=== PATIENT | male | born 1980 | race Caucasian/White ===

== ENCOUNTER → 2016-07-27 | Outpatient (CLI) | payer BC, OTHER ==
[~2016-07-27] MED LIST: ISOVUE-M 300 61% 15ML VIAL (Q9967) As Ordered ONE; LIDOCAINE 1% SDV INJ 30 ML VIAL As Ordered ONE; diazePAM 5 MG TAB As Ordered ONE; methylPREDNISolone SUSP 40 MG/ML (DEPO-medrol) VIAL (J1030) As Ordered ONE; oxyCODONE 5MG TAB As Ordered ONE
--- NOTE | 2016-07-27 17:22 | REP ---
Partial lumbar spine series: Single view: History: Lumbar epidural steroid injection for pain. 10 seconds of fluoroscopy time is reported. Findings: A single fluoroscopically obtained intraprocedural spot radiograph of the lumbar spine documents needle position and contrast injection associated with epidural injection procedure. Signed by Jorge Luis Agudelo MD 07/28/2016 08:02 A
--- NOTE | 2016-07-30 01:15 | ECWPNPC ---
PATIENT NAME: JEANINE BAPTISTE : 1980 GENDER: MALE VISIT DATE: 07/27/2016 DISCHARGE DATE: 07/27/16 1621 VISIT LOCKED DATE TIME: PHYSICIAN: TREVOR STONE RESOURCE: TREVOR STONE REASON FOR APPOINTMENT 1. LESB HISTORY OF PRESENT ILLNESS HISTORY OF PRESENT ILLNESS: PAIN THE PATIENT DESCRIBES THE PAIN... FALL RISK SCREENING: SCREENING :NO FALLS IN THE PAST YEAR CURRENT MEDICATIONS TAKING OMEPRAZOLE 20 MG CAPSULE DELAYED RELEASE 1 CAP ORALLY ONCE A DAY, NOTES: 07-27-16629 TAKING CELEBREX 200 MG CAPSULE 1 CAPSULE ORALLY BID, NOTES: 07-27-16629 TAKING FLEXERIL 10 MG TABLET 1 TABLET ORALLY BID, NOTES: 07-27-16629 TAKING OXYCODONE HCL 5 MG TABLET 1 TABLET ORALLY Q8H PRN MDD3, NOTES: NOT PRESCRIBED FOR HIM 07-26-162029 TAKING GABAPENTIN 300 MG CAPSULE 1 CAPSULE ORALLY BID, NOTES: 07-27-16629 NOT-TAKING TRAMADOL HCL 50 MG TABLET SOLUBLE ORALLY , NOTES: TOOK LAST 1 THIS AM,NOT PRECRIBED FOR HIM NOT-TAKING METHYLPREDNISOLONE 4 MG TABLET THERAPY PACK DIRECTED ORALLY DIRECTED, NOTES: COMPLETED 07/11 NOT-TAKING IBUPROFEN 600 MG TABLET 1 TABLET ORALLY ONCE DAILY, NOTES: RAN OUT 07/10 OR MEDICATION LIST REVIEWED AND RECONCILED WITH THE PATIENT PAST MEDICAL HISTORY GERD ALLERGIES N.K.D.A. SURGICAL HISTORY DENIES PAST SURGICAL HISTORY SOCIAL HISTORY GENERAL: TOBACCO USE ARE YOU A:CURRENT SMOKER LEARNING BARRIERS / SPECIAL NEEDS ORIENTED TO PLAN OF CARE: PATIENT, PAIN MANAGEMENT PATIENT, ORIENTED TO PLAN OF CARE: PATIENT, PAIN MANAGEMENT PATIENT. NEW PATIENT PAIN DIARY TODAY'S VISITNOTES FROM 0-10, WHAT LEVEL IS YOUR PAIN TODAY?0 PAIN CLINIC PFS, CLERGY, PUBLIC HEALTH REFERRALS PFS REFERRAL NEEDED?NO CLERGY REFERRAL NEEDED?NO PUBLIC HEALTH REFERRAL NEEDED?NO WAS THE PROVIDER NOTIFIED OF ANY PERTINENT INFO?NO PFS REFERRAL NEEDED?NO CLERGY REFERRAL NEEDED?NO PUBLIC HEALTH REFERRAL NEEDED?NO WAS THE PROVIDER NOTIFIED OF ANY PERTINENT INFO?NO HOSPITALIZATION/MAJOR DIAGNOSTIC PROCEDURE DENIES PAST HOSPITALIZATION REVIEW OF SYSTEMS CONSTITUTIONAL: ANY CHANGE IN YOUR MEDICAL CONDITION? NO . CHILLS NO . FEVER NO . INFECTION: DO YOU HAVE NEW INFECTIONS? NO . DO YOU HAVE HISTORY OF MRSA? NO . MUSCULOSKELETAL: ANY NEW PATTERNS OF PAIN OR NUMBNESS? NO . GASTROENTEROLOGY: ANY NEW CHANGE IN BOWEL CONTROL? NO . GENITOURINARY: ANY NEW CHANGE IN BLADDER CONTROL? NO . IS THERE A CHANCE YOU COULD BE ? NO . HEMATOLOGY/LYMPH: DO YOU TAKE ANY BLOOD THINNERS? (FOR EXAMPLE- COUMADIN, PLAVIX, AGGRENOX, PLATEL, PRADAXA, OR XARELTO) NO . WHEN WAS YOUR LAST DOSE? DATE: TIME: . NEUROLOGY: HAVE YOU FALLEN IN THE PAST 6 MONTHS? NO . ANY NEW EXTREMITY NUMBNESS OR WEAKNESS? NO . CARDIOLOGY: DO YOU HAVE A PACEMAKER OR DEFIBRILLATOR? NO . RESPIRATORY: HAVE YOU BEEN SICK IN THE PAST WEEK? NO . FEVER NO . FLU LIKE SYMPTOMS? NO . COUGH NO . INTEGUMENTARY: DO YOU HAVE ANY RASHES OR OPEN SORES? NO . ALLERGIC/IMMUNO: ARE YOU ALLERGIC TO SHELLFISH OR IV DYE? NO . ANY NEW ALLERGIES? NO . PSYCHIATRIC: DO YOU HAVE THOUGHTS OF HURTING YOURSELF OR SOMEONE ELSE? NO . ARE YOU ABUSED, NEGLECTED, OR IN AN UNSAFE ENVIRONMENT? NO . ENDOCRINOLOGY: ARE YOU DIABETIC? NO . OTHER: DO YOU NEED ANY PRESCRIPTIONS? YES . IF YES, PLEASE LIST: OMEPRAZOLE . ANY NEW PROBLEMS WITH YOUR MEDICATIONS? NO . WHEN DID YOU LAST EAT? 0630 . WHEN DID YOU LAST DRINK? 1030 . WHAT DID YOU LAST DRINK? WATER . NAME OF PERSON DRIVING YOU HOME? TARA FERNÁNDEZ . DO YOU HAVE ANY OTHER QUESTIONS OR CONCERNS NO . REVIEWED BY: PROVIDER: . VITAL SIGNS WT 230 LBS, HT 70 IN, BMI 33.00 INDEX, BP 137/88 MM HG, HR 91 /MIN, RR 16 /MIN, TEMP 98.0 F, OXYGEN SAT % 97, NA INITIALS TL 1359, REVIEWED BY: LS. ASSESSMENTS INTERVERTEBRAL DISC DISORDERS WITH RADICULOPATHY, LUMBOSACRAL REGION - M51.17 (PRIMARY) PROCEDURES PRE PROCEDURE DIAGNOSIS LUMBOSACRAL DISC DISORDER WITH RADICULOPATHY POST PROCEDURE DIAGNOSIS LUMBOSACRAL DISC DISORDER WITH RADICULOPATHY PROCEDURE LUMBAR EPIDURAL STEROID INJECTION UNDER FLUOROSCOPIC GUIDANCE SURGEON DR. TREVOR STONE RETAIL SERVICE LEAD MERCHANDISER NONE ANESTHESIA LOCAL PRE PROCEDURE NOTE THE PATIENT HAS A HISTORY OF CHRONIC LOW BACK PAIN. I EVALUATE THE PATIENT AND REVIEWED THE CHART. I WENT OVER THE RISKS, ALTERNATIVES, AND BENEFITS ASSOCIATED WITH THIS PROCEDURE. THE PATIENT WOULD LIKE TO PROCEED AND GIVE CONSENT TO PERFORMED THE PROCEDURE. THE PATIENT DENIES UNEXPLAINABLE WEIGHT LOSS, FEVER, CHILLS, OR NEW CHANGES IN URINARY OR BOWEL CONTROL DESCRIPTION OF PROCEDURE THE PATIENT WAS BROUGHT TO THE PROCEDURE ROOM AND PLACED IN THE PRONE POSITION. THE LUMBOSACRAL AREA WAS CLEANED WITH BETADINE SOLUTION AND DRAPED ASEPTICALLY. THE PROCEDURE WAS DONE UNDER STERILE CONDITIONS. I CHECKED LATERALITY AND THE LEVEL WHERE THE PROCEDURE WAS GOING TO BE PERFORMED WITH THE PATIENT AND THE SUPPORTING STAFF AT THE MOMENT OF THE TIME OUT IN THE PROCEDURE ROOM. UNDER FLUOROSCOPIC GUIDANCE, THE TARGET POINT WAS SELECTED AT THE INTERLAMINAR LEVEL OF L5-S1. LIDOCAINE WAS USED TO NUMB THE SKIN AND THE SUBCUTANEOUS TISSUE BELOW IT. EPIDURAL TUOHY NEEDLE, 17-GAUGE, WAS ADVANCED UNDER FLUOROSCOPIC GUIDANCE AND FOLLOWING PATIENT FEEDBACK UNTIL THE EPIDURAL SPACE WAS REACHED, 7 CM DEEP INTO THE SKIN BY THE LOSS OF RESISTANCE TECHNIQUE. ISOVUE M DYE 30%, 0.25 ML, WAS INJECTED SHOWING ADEQUATE SPREAD OF THE DYE. THEN, A SOLUTION OF 3 ML OF NORMAL SALINE WITH DEPO-MEDROL 60 MG WAS INJECTED SLOWLY FOLLOWING PATIENT FEEDBACK. THERE WAS NO EVIDENCE OF BLOOD, PARESTHESIA OR CEREBROSPINAL FLUID DURING THE PROCEDURE. THE PATIENT WAS SENT TO THE RECOVERY ROOM. THE PATIENT WAS MOVING THE EXTREMITIES AND DOING WELL. THERE WAS NO COMPLICATION DURING THE PROCEDURE. FLUOROSCOPY TIME WAS 10 SECONDS POST PROCEDURE NOTE THE PATIENT WILL BE SEEN IN A FOLLOW UP IN THE NEXT FEW WEEKS. INSTRUCTIONS WERE GIVEN, QUESTIONS WERE ANSWERED, AND THE PATIENT EXPRESSED UNDERSTANDING AND AGREES WITH THE PLAN. I, GEE HARDY, DOCUMENTED THE ABOVE INFORMATION ACTING A SCRIBE FOR DR. STONE. I HAVE REVIEWED THE ABOVE DOCUMENT, WRITTEN BY GEE NEVAREZIBSilvana AND I VERIFY THAT IT IS ACCURATE DIAGNOSTIC IMAGING [facility] FLUORO GUIDE SPINE INJECTION (PAIN)[id number] PROCEDURE CODES 21313 LUMBAR/SACRAL W/ IMAGING 6045F RADXPS IN END [id number] PXD FOLLOW UP 3 WEEKS ELECTRONICALLY SIGNED BY TREVOR STONE MD ON 07/29/2016 AT 06:20 PM EST DISCLAIMER : THIS IS A VISIT SUMMARY EXTRACTED FROM THE [employer] CHART. IT IS NOT A COPY OF THE [employer] PROGRESS NOTE. MTDD
== END ==
LOC: M PAIN 13:20
PROVIDERS: ATTEND Anesthesiology
DX: G89.29 Other chronic pain (principal); M51.17 Intervertebral disc disorders with radiculopathy, lumbosacral region; M54.5 Low back pain; Z79.891 Long term (current) use of opiate analgesic; Z79.899 Other long term (current) drug therapy
CPT/HCPCS: 62323; J1030; Q9967

== ENCOUNTER → 2016-08-26 | Outpatient (CLI) | payer BC, OTHER ==
--- NOTE | 2016-09-01 00:42 | ECWPNPC ---
PATIENT NAME: JEANINE BAPTISTE : 1980 GENDER: MALE VISIT DATE: 08/26/2016 DISCHARGE DATE: 08/26/16 1639 VISIT LOCKED DATE TIME: PHYSICIAN: TREVOR STONE RESOURCE: TREVOR STONE REASON FOR APPOINTMENT 1. POST PROCEDURE- LBP HISTORY OF PRESENT ILLNESS HISTORY OF PRESENT ILLNESS: PAIN THE PATIENT DESCRIBES THE PAIN... 36 YEAR OLD MALE PATIENT WITH HISTORY OF CHRONIC BACK PAIN. PATIENT DESCRIBES THE PAIN ACHING, BURNING, TENDER, SORE, AND HAVING IT ALL THE TIME WITH A PAIN SCORE OF 3/10 ON TODAY'S VISIT. PATIENT RECEIVED A LUMBAR EPIDURAL ON 07/27/2016 AND REPORTS THAT IT WORKED WELL FOR HIM. SINCE THE INJECTION HE HAS BEEN ABLE TO WALK AROUND A LOT BETTER WITH LESS PAIN. PATIENT REPORTS THAT TODAY HIS PAIN SCORE IS GOOD, AND BEFORE HE SAW THE CHIROPRACTOR ABOUT A WEEKS AGO IT WOULD BE A 1/10 OR 2/10 AND THAT HE WOULD ONLY TAKE ONE GABAPENTIN AND CELEBREX A DAY AND SOMETIMES NONE AT ALL. BUT SINCE THE VISIT WITH THE CHIROPRACTOR HIS PAIN LEVELS HAVE BEEN SLOWLY GOING UP WELL THE PAIN INTENSITY INCREASING. PATIENT DENIES UNEXPLAINABLE WEIGHT LOSS, FEVER, CHILLS, NEW CHANGES ON HIS URINARY OR BOWEL CONTROL. FALL RISK SCREENING: SCREENING :NO FALLS IN THE PAST YEAR CURRENT MEDICATIONS TAKING OMEPRAZOLE 20 MG CAPSULE DELAYED RELEASE 1 CAP ORALLY ONCE A DAY TAKING FLEXERIL 10 MG TABLET 1 TABLET ORALLY BID TAKING CELEBREX 200 MG CAPSULE 1 CAPSULE ORALLY BID TAKING OXYCODONE HCL 5 MG TABLET 1 TABLET ORALLY Q8H PRN MDD3 TAKING GABAPENTIN 300 MG CAPSULE 1 CAPSULE ORALLY BID NOT-TAKING TRAMADOL HCL 50 MG TABLET SOLUBLE ORALLY , NOTES: TOOK LAST 1 THIS AM,NOT PRECRIBED FOR HIM NOT-TAKING METHYLPREDNISOLONE 4 MG TABLET THERAPY PACK DIRECTED ORALLY DIRECTED, NOTES: COMPLETED 07/11 NOT-TAKING IBUPROFEN 600 MG TABLET 1 TABLET ORALLY ONCE DAILY, NOTES: RAN OUT 07/10 OR MEDICATION LIST REVIEWED AND RECONCILED WITH THE PATIENT PAST MEDICAL HISTORY GERD ALLERGIES N.K.D.A. SURGICAL HISTORY NO SURGICAL HISTORY DOCUMENTED. FAMILY HISTORY NO FAMILY HISTORY DOCUMENTED. SOCIAL HISTORY GENERAL: TOBACCO USE ARE YOU A:NONSMOKER LEARNING BARRIERS / SPECIAL NEEDS ORIENTED TO PLAN OF CARE: PATIENT, PAIN MANAGEMENT PATIENT, ORIENTED TO PLAN OF CARE: PATIENT, PAIN MANAGEMENT PATIENT. NEW PATIENT PAIN DIARY TODAY'S VISITNOTES FROM 0-10, WHAT LEVEL IS YOUR PAIN TODAY?0 PAIN CLINIC PFS, CLERGY, PUBLIC HEALTH REFERRALS PFS REFERRAL NEEDED?NO CLERGY REFERRAL NEEDED?NO PUBLIC HEALTH REFERRAL NEEDED?NO WAS THE PROVIDER NOTIFIED OF ANY PERTINENT INFO?NO PFS REFERRAL NEEDED?NO CLERGY REFERRAL NEEDED?NO PUBLIC HEALTH REFERRAL NEEDED?NO WAS THE PROVIDER NOTIFIED OF ANY PERTINENT INFO?NO HOSPITALIZATION/MAJOR DIAGNOSTIC PROCEDURE NO HOSPITALIZATION HISTORY. REVIEW OF SYSTEMS CONSTITUTIONAL: ANY CHANGE IN YOUR MEDICAL CONDITION? NO . CHILLS NO . FEVER NO . INFECTION: DO YOU HAVE NEW INFECTIONS? NO . DO YOU HAVE HISTORY OF MRSA? NO . MUSCULOSKELETAL: ANY NEW PATTERNS OF PAIN OR NUMBNESS? YES PAIN HAS CHANGED SINCE PROCEDURE/CHIROPRACTOR . GASTROENTEROLOGY: ANY NEW CHANGE IN BOWEL CONTROL? NO . GENITOURINARY: ANY NEW CHANGE IN BLADDER CONTROL? NO . IS THERE A CHANCE YOU COULD BE ? NO . HEMATOLOGY/LYMPH: DO YOU TAKE ANY BLOOD THINNERS? (FOR EXAMPLE- COUMADIN, PLAVIX, AGGRENOX, PLATEL, PRADAXA, OR XARELTO) NO . WHEN WAS YOUR LAST DOSE? DATE: TIME: . NEUROLOGY: HAVE YOU FALLEN IN THE PAST 6 MONTHS? NO . ANY NEW EXTREMITY NUMBNESS OR WEAKNESS? NO . CARDIOLOGY: DO YOU HAVE A PACEMAKER OR DEFIBRILLATOR? NO . RESPIRATORY: HAVE YOU BEEN SICK IN THE PAST WEEK? NO . FEVER NO . FLU LIKE SYMPTOMS? NO . COUGH NO . INTEGUMENTARY: DO YOU HAVE ANY RASHES OR OPEN SORES? NO . ALLERGIC/IMMUNO: ARE YOU ALLERGIC TO SHELLFISH OR IV DYE? NO . ANY NEW ALLERGIES? NO . PSYCHIATRIC: DO YOU HAVE THOUGHTS OF HURTING YOURSELF OR SOMEONE ELSE? NO . ARE YOU ABUSED, NEGLECTED, OR IN AN UNSAFE ENVIRONMENT? NO . ENDOCRINOLOGY: ARE YOU DIABETIC? NO . OTHER: DO YOU NEED ANY PRESCRIPTIONS? NO . IF YES, PLEASE LIST: ____ . ANY NEW PROBLEMS WITH YOUR MEDICATIONS? NO . WHEN DID YOU LAST EAT? ____ . WHEN DID YOU LAST DRINK? ____ . WHAT DID YOU LAST DRINK? ____ . NAME OF PERSON DRIVING YOU HOME? ____ . DO YOU HAVE ANY OTHER QUESTIONS OR CONCERNS NO . REVIEWED BY: PROVIDER: TREVOR STONE MD . VITAL SIGNS WT 225 LBS, HT 70 IN, BMI 32.28 INDEX, BP 144/86 MM HG, HR 93 /MIN, RR 16 /MIN, TEMP 97.2 F, OXYGEN SAT % 98, NA INITIALS TL 1529, REVIEWED BY: KG. EXAMINATION : PATIENT IS ALERT O X 3 AND COOPERATIVE. PATIENT AMBULATES WITH AN ANTALGIC GAIT. PATIENT'S RIGHT LEG IS WEAKER AT FLEXION AND EXTENSION. MRI OF THE LUMBAR SPINE DONE ON 04-27-2016 SHOWS A CENTRAL RIGHT PARACENTRAL DISC PROTRUSION AT L5-S1 LEVEL COMPRESSES ON THE TRANSVERSI NG RIGHT S1 NERVE ROOT. ASSESSMENTS INTERVERTEBRAL DISC DISORDERS WITH RADICULOPATHY, LUMBAR REGION - M51.16 (PRIMARY) INTERVERTEBRAL DISC DISORDERS WITH RADICULOPATHY, LUMBOSACRAL REGION - M51.17 TREATMENT INTERVERTEBRAL DISC DISORDERS WITH RADICULOPATHY, LUMBAR REGION NOTES: WE DISCUSSED SEVERAL ISSUES WITH MR. BAPTISTE'S PAIN MANAGEMENT CASE. AT THIS TIME THE PATIENT WILL CONTINUE ON THE SAME MEDICATION REGIMEN BEFORE. SINCE THE PATIENT FELT GOOD PAIN RELIEF WITH THE LUMBAR EPIDURAL INJECTION, HE IS A GOOD CANDIDATE FOR ANOTHER LUMBER EPIDURAL INJECTION. WE DISCUSSED THE RISK, ALTERNATIVES, AND BENEFITS AND THE PATIENT WOULD LIKE TO PROCEED. PATIENT WILL BE BOOKED PENDING APPROVAL. , INSTRUCTIONS WERE GIVEN, QUESTIONS WERE ANSWERED, PATIENT REPORTS UNDERSTANDING AND AGREES WITH THE PLAN. I, HAZEL BOYKIN, DOCUMENTED THE ABOVE INFORMATION ACTING A SCRIBE FOR DR. STONE. I HAVE REVIEWED THE ABOVE DOCUMENT, WRITTEN BY HAZEL NEVAREZIBSilvana AND I VERIFY THAT IT IS ACCURATE. PROCEDURE CODES FA211 ESTABILISHED PATIENT [facility] FACILITY CHARGE G8730 PAIN ASSESS POS TOOL F/U PLAN DOC G8427 DOC MEDS VERIFIED W/PT OR RE DISPOSITION & COMMUNICATION FOLLOW UP LESI PENDING APPROVAL ELECTRONICALLY SIGNED BY TREVOR STONE MD ON 08/31/2016 AT 05:48 PM EST DISCLAIMER : THIS IS A VISIT SUMMARY EXTRACTED FROM THE [email or web address] CHART. IT IS NOT A COPY OF THE [email or web address] PROGRESS NOTE. MTDD
== END ==
LOC: M PAIN 15:30
PROVIDERS: ATTEND Anesthesiology
DX: G89.29 Other chronic pain (principal); M51.16 Intervertebral disc disorders with radiculopathy, lumbar region; M51.17 Intervertebral disc disorders with radiculopathy, lumbosacral region; K21.9 Gastro-esophageal reflux disease without esophagitis; Z79.891 Long term (current) use of opiate analgesic; Z79.899 Other long term (current) drug therapy

== ENCOUNTER → 2016-10-03 | Outpatient (CLI) | payer BC, OTHER ==
--- NOTE | 2016-10-03 14:21 | REP ---
PARTIAL LUMBAR SPINE SERIES: Three views. HISTORY: Lumbar epidural for pain. 10 seconds of fluoroscopy time is reported. FINDINGS: A sequence of three fluoroscopically obtained last image hold spot radiographs of the lumbar spine document needle position and contrast injection associated with lumbar epidural injection procedure. Unreviewed
--- NOTE | 2016-10-05 23:47 | ECWPNPC ---
PATIENT NAME: JEANINE BAPTISTE : 1980 GENDER: MALE VISIT DATE: 10/03/2016 DISCHARGE DATE: 10/03/16 1327 VISIT LOCKED DATE TIME: PHYSICIAN: TREVOR STONE RESOURCE: TREVOR STONE REASON FOR APPOINTMENT 1. LESI HISTORY OF PRESENT ILLNESS HISTORY OF PRESENT ILLNESS: PAIN THE PATIENT DESCRIBES THE PAIN... FALL RISK SCREENING: SCREENING :NO FALLS IN THE PAST YEAR CURRENT MEDICATIONS TAKING OMEPRAZOLE 20 MG CAPSULE DELAYED RELEASE 1 CAP ORALLY ONCE A DAY, NOTES: 10-03-16599 TAKING FLEXERIL 10 MG TABLET 1 TABLET ORALLY BID, NOTES: 10-02-162199 TAKING OXYCODONE HCL 5 MG TABLET 1 TABLET ORALLY Q12H PRN MDD2, NOTES: 09-14-16 09 TAKING CELEBREX 200 MG CAPSULE 1 CAPSULE ORALLY BID, NOTES: 10-03-16599 TAKING GABAPENTIN 300 MG CAPSULE 1 CAPSULE ORALLY BID, NOTES: 10-03-16599 NOT-TAKING TRAMADOL HCL 50 MG TABLET SOLUBLE ORALLY , NOTES: TOOK LAST 1 THIS AM,NOT PRECRIBED FOR HIM NOT-TAKING METHYLPREDNISOLONE 4 MG TABLET THERAPY PACK DIRECTED ORALLY DIRECTED, NOTES: COMPLETED 07/11 NOT-TAKING IBUPROFEN 600 MG TABLET 1 TABLET ORALLY ONCE DAILY, NOTES: RAN OUT 07/10 OR MEDICATION LIST REVIEWED AND RECONCILED WITH THE PATIENT PAST MEDICAL HISTORY GERD ALLERGIES N.K.D.A. SOCIAL HISTORY GENERAL: TOBACCO USE ARE YOU A:CURRENT SMOKER LEARNING BARRIERS / SPECIAL NEEDS ORIENTED TO PLAN OF CARE: PATIENT, PAIN MANAGEMENT PATIENT, ORIENTED TO PLAN OF CARE: PATIENT, PAIN MANAGEMENT PATIENT. NEW PATIENT PAIN DIARY TODAY'S VISITNOTES FROM 0-10, WHAT LEVEL IS YOUR PAIN TODAY?0 PAIN CLINIC PFS, CLERGY, PUBLIC HEALTH REFERRALS PFS REFERRAL NEEDED?NO CLERGY REFERRAL NEEDED?NO PUBLIC HEALTH REFERRAL NEEDED?NO WAS THE PROVIDER NOTIFIED OF ANY PERTINENT INFO?NO PFS REFERRAL NEEDED?NO CLERGY REFERRAL NEEDED?NO PUBLIC HEALTH REFERRAL NEEDED?NO WAS THE PROVIDER NOTIFIED OF ANY PERTINENT INFO?NO REVIEW OF SYSTEMS CONSTITUTIONAL: ANY CHANGE IN YOUR MEDICAL CONDITION? NO . CHILLS NO . FEVER NO . INFECTION: DO YOU HAVE NEW INFECTIONS? NO . DO YOU HAVE HISTORY OF MRSA? NO . MUSCULOSKELETAL: ANY NEW PATTERNS OF PAIN OR NUMBNESS? NO . GASTROENTEROLOGY: ANY NEW CHANGE IN BOWEL CONTROL? NO . GENITOURINARY: ANY NEW CHANGE IN BLADDER CONTROL? NO . IS THERE A CHANCE YOU COULD BE ? NO . HEMATOLOGY/LYMPH: DO YOU TAKE ANY BLOOD THINNERS? (FOR EXAMPLE- COUMADIN, PLAVIX, AGGRENOX, PLATEL, PRADAXA, OR XARELTO) NO . WHEN WAS YOUR LAST DOSE? DATE: TIME: . NEUROLOGY: HAVE YOU FALLEN IN THE PAST 6 MONTHS? NO . ANY NEW EXTREMITY NUMBNESS OR WEAKNESS? NO . CARDIOLOGY: DO YOU HAVE A PACEMAKER OR DEFIBRILLATOR? NO . RESPIRATORY: HAVE YOU BEEN SICK IN THE PAST WEEK? NO . FEVER NO . FLU LIKE SYMPTOMS? NO . COUGH NO . INTEGUMENTARY: DO YOU HAVE ANY RASHES OR OPEN SORES? NO . ALLERGIC/IMMUNO: ARE YOU ALLERGIC TO SHELLFISH OR IV DYE? NO . ANY NEW ALLERGIES? NO . PSYCHIATRIC: DO YOU HAVE THOUGHTS OF HURTING YOURSELF OR SOMEONE ELSE? NO . ARE YOU ABUSED, NEGLECTED, OR IN AN UNSAFE ENVIRONMENT? NO . ENDOCRINOLOGY: ARE YOU DIABETIC? NO . OTHER: DO YOU NEED ANY PRESCRIPTIONS? NO . IF YES, PLEASE LIST: ____ . ANY NEW PROBLEMS WITH YOUR MEDICATIONS? NO . WHEN DID YOU LAST EAT? ____530 AM [id number] . WHEN DID YOU LAST DRINK? ____930 AM TODAY . WHAT DID YOU LAST DRINK? ____WATER . NAME OF PERSON DRIVING YOU HOME? ____DAVID LOGAN . DO YOU HAVE ANY OTHER QUESTIONS OR CONCERNS NO . REVIEWED BY: PROVIDER: . VITAL SIGNS WT 225 LBS, HT 70 IN, BMI 32.28 INDEX, BP 169/94 MM HG, HR 78 /MIN, RR 18 /MIN, TEMP 98.6 F, OXYGEN SAT % 96, REVIEWED BY: LS. ASSESSMENTS INTERVERTEBRAL DISC DISORDERS WITH RADICULOPATHY, LUMBOSACRAL REGION - M51.17 (PRIMARY) PROCEDURES PRE PROCEDURE DIAGNOSIS LUMBOSACRAL RADICULOPATHY, LUMBOSACRAL DISC DISORDER WITH RADICULOPATHY POST PROCEDURE DIAGNOSIS LUMBOSACRAL RADICULOPATHY , LUMBOSACRAL DISC DISORDER WITH RADICULOPATHY PROCEDURE L5-S1 EPIDURAL STEROID INJECTION UNDER FLUOROSCOPIC GUIDANCE SURGEON DR. TREVOR STONE CHEF BROILER OR FRY NONE ANESTHESIA LOCAL PRE PROCEDURE NOTE THE PATIENT HAS A HISTORY OF CHRONIC LOW BACK PAIN. I EVALUATE THE PATIENT AND REVIEWED THE CHART. I WENT OVER THE RISKS, ALTERNATIVES, AND BENEFITS ASSOCIATED WITH THIS PROCEDURE. THE PATIENT WOULD LIKE TO PROCEED AND GIVE CONSENT TO PERFORMED THE PROCEDURE. THE PATIENT DENIES UNEXPLAINABLE WEIGHT LOSS, FEVER, CHILLS, OR NEW CHANGES IN URINARY OR BOWEL CONTROL. DESCRIPTION OF PROCEDURE THE PATIENT WAS BROUGHT TO THE PROCEDURE ROOM AND PLACED IN THE PRONE POSITION. THE LUMBOSACRAL AREA WAS CLEANED WITH BETADINE SOLUTION AND DRAPED ASEPTICALLY. THE PROCEDURE WAS DONE UNDER STERILE CONDITIONS. I CHECKED LATERALITY AND THE LEVEL WHERE THE PROCEDURE WAS GOING TO BE PERFORMED WITH THE PATIENT AND THE SUPPORTING STAFF AT THE MOMENT OF THE TIME OUT IN THE PROCEDURE ROOM. UNDER FLUOROSCOPIC GUIDANCE, THE TARGET POINT WAS SELECTED AT THE INTERLAMINAR LEVEL OF L5-S1. LIDOCAINE WAS USED TO NUMB THE SKIN AND THE SUBCUTANEOUS TISSUE BELOW IT. EPIDURAL TUOHY NEEDLE, 17-GAUGE, WAS ADVANCED UNDER FLUOROSCOPIC GUIDANCE AND FOLLOWING PATIENT FEEDBACK UNTIL THE EPIDURAL SPACE WAS REACHED, 7 CM DEEP INTO THE SKIN BY THE LOSS OF RESISTANCE TECHNIQUE. ISOVUE M DYE 30%, 0.25 ML, WAS INJECTED SHOWING ADEQUATE SPREAD OF THE DYE. THEN, A SOLUTION OF 3 ML OF NORMAL SALINE WITH DEPO-MEDROL 60 MG WAS INJECTED SLOWLY FOLLOWING PATIENT FEEDBACK. THERE WAS NO EVIDENCE OF BLOOD, PARESTHESIA OR CEREBROSPINAL FLUID DURING THE PROCEDURE. THE PATIENT WAS SENT TO THE RECOVERY ROOM. THE PATIENT WAS MOVING THE EXTREMITIES AND DOING WELL. THERE WAS NO COMPLICATION DURING THE PROCEDURE. FLUOROSCOPY TIME WAS 14 SECONDS. POST PROCEDURE NOTE THE PATIENT WILL BE SEEN IN A FOLLOW UP IN THE NEXT FEW WEEKS. INSTRUCTIONS WERE GIVEN, QUESTIONS WERE ANSWERED, AND THE PATIENT EXPRESSED UNDERSTANDING AND AGREES WITH THE PLAN. INSTRUCTIONS WERE GIVEN, QUESTIONS WERE ANSWERED, PATIENT REPORTS UNDERSTANDING AND AGREES WITH THE PLAN. I, HAZEL BOYKIN, DOCUMENTED THE ABOVE INFORMATION ACTING A SCRIBE FOR DR. STONE. I HAVE REVIEWED THE ABOVE DOCUMENT, WRITTEN BY HAZEL BOYKIN SCRIBSilvana AND I VERIFY THAT IT IS ACCURATE. DIAGNOSTIC IMAGING [facility] FLUORO GUIDE SPINE INJECTION (PAIN)[id number] PROCEDURE CODES 27350 INJ FORAMEN EPIDURAL L/S 6045F RADXPS IN END [id number] PXD DISPOSITION & COMMUNICATION FOLLOW UP 3 WEEKS ELECTRONICALLY SIGNED BY TREVOR STONE MD ON 10/05/2016 AT 08:31 PM EDT DISCLAIMER : THIS IS A VISIT SUMMARY EXTRACTED FROM THE [employer] CHART. IT IS NOT A COPY OF THE [employer] PROGRESS NOTE. BENEDICTO
== END ==
LOC: M PAIN 11:40
PROVIDERS: ATTEND Anesthesiology
DX: G89.29 Other chronic pain (principal); M51.17 Intervertebral disc disorders with radiculopathy, lumbosacral region; M54.5 Low back pain; Z79.891 Long term (current) use of opiate analgesic; Z79.899 Other long term (current) drug therapy; K21.9 Gastro-esophageal reflux disease without esophagitis
CPT/HCPCS: 62323; J1030; Q9967

== ENCOUNTER → 2016-10-25 | Outpatient (CLI) | payer OTHER ==
--- NOTE | 2016-11-03 00:11 | ECWPNPC ---
PATIENT NAME: JEANINE BAPTISTE : 1980 GENDER: MALE VISIT DATE: 10/25/2016 DISCHARGE DATE: 10/25/16 1532 VISIT LOCKED DATE TIME: PHYSICIAN: ARIEL JONES RESOURCE: ARIEL JONES REASON FOR APPOINTMENT 1. POST LE HISTORY OF PRESENT ILLNESS HISTORY OF PRESENT ILLNESS: HERE FOR POST PROCEDURE F/U.RIYAI 10-03-16.REPORTS >50% IMPROVEMENT IN PAIN POST PROCEDURE THAT CONTINUES TODAY.RATING PAIN VAS 2/10.DESCRIBES INTERMITTENT RIGHT POSTERIOR THIGH PAIN DESCRIBED TENDER. FALL RISK SCREENING: SCREENING :NO FALLS IN THE PAST YEAR CURRENT MEDICATIONS TAKING OMEPRAZOLE 20 MG CAPSULE DELAYED RELEASE 1 CAP ORALLY ONCE A DAY TAKING FLEXERIL 10 MG TABLET 1 TABLET ORALLY BID TAKING OXYCODONE HCL 5 MG TABLET 1 TABLET ORALLY Q12H PRN MDD2 TAKING CELEBREX 200 MG CAPSULE 1 CAPSULE ORALLY BID TAKING GABAPENTIN 300 MG CAPSULE 1 CAPSULE ORALLY BID NOT-TAKING TRAMADOL HCL 50 MG TABLET SOLUBLE ORALLY , NOTES: TOOK LAST 1 THIS AM,NOT PRECRIBED FOR HIM NOT-TAKING METHYLPREDNISOLONE 4 MG TABLET THERAPY PACK DIRECTED ORALLY DIRECTED, NOTES: COMPLETED 07/11 NOT-TAKING IBUPROFEN 600 MG TABLET 1 TABLET ORALLY ONCE DAILY, NOTES: RAN OUT 07/10 OR MEDICATION LIST REVIEWED AND RECONCILED WITH THE PATIENT PAST MEDICAL HISTORY GERD SOCIAL HISTORY GENERAL: PAIN CLINIC PFS, CLERGY, PUBLIC HEALTH REFERRALS CLERGY REFERRAL NEEDED?NO WAS THE PROVIDER NOTIFIED OF ANY PERTINENT INFO?NO PFS REFERRAL NEEDED?NO PUBLIC HEALTH REFERRAL NEEDED?NO PATIENT: ____. REVIEW OF SYSTEMS CONSTITUTIONAL: ANY CHANGE IN YOUR MEDICAL CONDITION? NO . CHILLS NO . FEVER NO . INFECTION: DO YOU HAVE NEW INFECTIONS? NO . DO YOU HAVE HISTORY OF MRSA? NO . MUSCULOSKELETAL: ANY NEW PATTERNS OF PAIN OR NUMBNESS? NO . GASTROENTEROLOGY: ANY NEW CHANGE IN BOWEL CONTROL? NO . GENITOURINARY: ANY NEW CHANGE IN BLADDER CONTROL? NO . IS THERE A CHANCE YOU COULD BE ? NO . HEMATOLOGY/LYMPH: DO YOU TAKE ANY BLOOD THINNERS? (FOR EXAMPLE- COUMADIN, PLAVIX, AGGRENOX, PLATEL, PRADAXA, OR XARELTO) NO . WHEN WAS YOUR LAST DOSE? DATE: TIME: . NEUROLOGY: HAVE YOU FALLEN IN THE PAST 6 MONTHS? YES PT FELL GOING UP STAIRS STEP &QUOT;GAVE WAY&QUOT; BEEN MORE TENDER SINCE THEN . ANY NEW EXTREMITY NUMBNESS OR WEAKNESS? NO . CARDIOLOGY: DO YOU HAVE A PACEMAKER OR DEFIBRILLATOR? NO . RESPIRATORY: HAVE YOU BEEN SICK IN THE PAST WEEK? NO . FEVER NO . FLU LIKE SYMPTOMS? NO . COUGH NO . INTEGUMENTARY: DO YOU HAVE ANY RASHES OR OPEN SORES? NO . ALLERGIC/IMMUNO: ARE YOU ALLERGIC TO SHELLFISH OR IV DYE? NO . ANY NEW ALLERGIES? NO . PSYCHIATRIC: DO YOU HAVE THOUGHTS OF HURTING YOURSELF OR SOMEONE ELSE? NO . ARE YOU ABUSED, NEGLECTED, OR IN AN UNSAFE ENVIRONMENT? NO . ENDOCRINOLOGY: ARE YOU DIABETIC? NO . OTHER: DO YOU NEED ANY PRESCRIPTIONS? NO . IF YES, PLEASE LIST: ____ . ANY NEW PROBLEMS WITH YOUR MEDICATIONS? NO . WHEN DID YOU LAST EAT? ____ . WHEN DID YOU LAST DRINK? ____ . WHAT DID YOU LAST DRINK? ____ . NAME OF PERSON DRIVING YOU HOME? ____ . DO YOU HAVE ANY OTHER QUESTIONS OR CONCERNS NO . REVIEWED BY: PROVIDER: ARIEL OLIVA . VITAL SIGNS WT 225.6 LBS, HT 70 IN, BMI 32.37 INDEX, BP 127/86 MM HG, HR 86 /MIN, RR 16 /MIN, TEMP 98.9 F, OXYGEN SAT % 99, NA INITIALS AW 1457. EXAMINATION GENERAL EXAMINATION: LUNGS:LUNG SOUNDS ARE CLEAR. HEART:HEART RATE REGULAR. MUSCULOSKELETAL:*, MUSCLE STRENGTH TESTING 5/5 LEFT LEG.5/5 RIGHT LEG, PALPATION: NEGATIVE FOR PAIN OVER L/S SPINE. NEGATIVE FOR PAIN OVER L/S PARASPINALS.. DIAGNOSTIC: . ASSESSMENTS INTERVERTEBRAL DISC DISORDERS WITH RADICULOPATHY, LUMBAR REGION - M51.16 (PRIMARY) TREATMENT INTERVERTEBRAL DISC DISORDERS WITH RADICULOPATHY, LUMBAR REGION STOP GABAPENTIN CAPSULE, 300 MG, 1 CAPSULE, ORALLY, BID CONTINUE CELEBREX CAPSULE, 200 MG, 1 CAPSULE, ORALLY, BID PROCEDURE CODES FA211 ESTABILISHED PATIENT [facility] FAC[facility] CHARGE DISPOSITION & COMMUNICATION FOLLOW UP 2 MONTHS ELECTRONICALLY SIGNED BY HAZEL DONOVAN ON 11/02/2016 AT 06:50 PM EDT DISCLAIMER : THIS IS A VISIT SUMMARY EXTRACTED FROM THE [employer] CHART. IT IS NOT A COPY OF THE [employer] PROGRESS NOTE. MTDD
== END ==
LOC: M PAIN 15:00
PROVIDERS: ATTEND Nurse Practitioner Family
DX: M51.16 Intervertebral disc disorders with radiculopathy, lumbar region (principal); Z79.891 Long term (current) use of opiate analgesic; Z79.899 Other long term (current) drug therapy; K21.9 Gastro-esophageal reflux disease without esophagitis

== ENCOUNTER → 2016-12-21 | Outpatient (CLI) | payer OTHER ==
--- NOTE | 2016-12-21 23:09 | ECWPNPC ---
PATIENT NAME: JEANINE BAPTISTE : 1980 GENDER: MALE VISIT DATE: 12/21/2016 DISCHARGE DATE: 12/21/16 1202 VISIT LOCKED DATE TIME: PHYSICIAN: ARIEL JONES RESOURCE: ARIEL JONES REASON FOR APPOINTMENT 1. LOW BACK HISTORY OF PRESENT ILLNESS HISTORY OF PRESENT ILLNESS: HERE FOR F/U OF CHRONIC LOW BACK PAIN/RIGHT LEG PAIN.HAS LARGE L/5/S/1 HNP WITH RIGHT LEG RADICULOPATHY.WAS OFFERED SURGERY BUT PATIENT WANTS TO HOLD OFF.HAVING SEVERE INCREASE IN LOW BACK PAIN AND RIGHT LEG RADICULAR SYMPTOMS PAST TWO WEEKS AFTER PUSH MOWING LAWN AND OTHER YARD WORK.DENIES BOWEL OR BLADDER INCONTINENCE.HAS RESPONDED WELL TO LESI IN PAST.DISCUSSED TRANSFORAMINAL STEROID INJECTIONS AND MEDICATION OPTIONS.RATING PAIN VAS 4/10. FALL RISK SCREENING: SCREENING :NO FALLS IN THE PAST YEAR CURRENT MEDICATIONS TAKING OMEPRAZOLE 20 MG CAPSULE DELAYED RELEASE 1 CAP ORALLY ONCE A DAY TAKING FLEXERIL 10 MG TABLET 1 TABLET ORALLY BID TAKING OXYCODONE HCL 5 MG TABLET 1 TABLET ORALLY Q12H PRN MDD2 TAKING CELEBREX 200 MG CAPSULE 1 CAPSULE ORALLY BID TAKING GABAPENTIN 300 MG CAPSULE 1 CAPSULE ORALLY TWO TIMES A DAY TAKING MELOXICAM 7.5 MG TABLET 1 TABLET ORALLY ONCE A DAY PRN TAKING CYCLOBENZAPRINE HCL 10 MG TABLET 1 TABLET NEEDED ORALLY TWO TIMES A DAY NOT-TAKING TRAMADOL HCL 50 MG TABLET SOLUBLE ORALLY , NOTES: TOOK LAST 1 THIS AM,NOT PRECRIBED FOR HIM NOT-TAKING METHYLPREDNISOLONE 4 MG TABLET THERAPY PACK DIRECTED ORALLY DIRECTED, NOTES: COMPLETED 07/11 NOT-TAKING IBUPROFEN 600 MG TABLET 1 TABLET ORALLY ONCE DAILY, NOTES: RAN OUT 07/10 OR MEDICATION LIST REVIEWED AND RECONCILED WITH THE PATIENT PAST MEDICAL HISTORY GERD REVIEW OF SYSTEMS CONSTITUTIONAL: ANY CHANGE IN YOUR MEDICAL CONDITION? NO . CHILLS NO . FEVER NO . INFECTION: DO YOU HAVE NEW INFECTIONS? YES, PT SUSPECTS SINUSITIS . DO YOU HAVE HISTORY OF MRSA? NO . MUSCULOSKELETAL: ANY NEW PATTERNS OF PAIN OR NUMBNESS? YES, SCIATICA IS WORSE . GASTROENTEROLOGY: ANY NEW CHANGE IN BOWEL CONTROL? NO . GENITOURINARY: ANY NEW CHANGE IN BLADDER CONTROL? NO . IS THERE A CHANCE YOU COULD BE ? NO . HEMATOLOGY/LYMPH: DO YOU TAKE ANY BLOOD THINNERS? (FOR EXAMPLE- COUMADIN, PLAVIX, AGGRENOX, PLATEL, PRADAXA, OR XARELTO) NO . WHEN WAS YOUR LAST DOSE? DATE: TIME: . NEUROLOGY: HAVE YOU FALLEN IN THE PAST 6 MONTHS? NO . ANY NEW EXTREMITY NUMBNESS OR WEAKNESS? NO . CARDIOLOGY: DO YOU HAVE A PACEMAKER OR DEFIBRILLATOR? NO . RESPIRATORY: HAVE YOU BEEN SICK IN THE PAST WEEK? NO . FEVER NO . FLU LIKE SYMPTOMS? NO . COUGH NO . INTEGUMENTARY: DO YOU HAVE ANY RASHES OR OPEN SORES? NO . ALLERGIC/IMMUNO: ARE YOU ALLERGIC TO SHELLFISH OR IV DYE? NO . ANY NEW ALLERGIES? NO . PSYCHIATRIC: DO YOU HAVE THOUGHTS OF HURTING YOURSELF OR SOMEONE ELSE? NO . ARE YOU ABUSED, NEGLECTED, OR IN AN UNSAFE ENVIRONMENT? NO . ENDOCRINOLOGY: ARE YOU DIABETIC? NO . OTHER: DO YOU NEED ANY PRESCRIPTIONS? NO . IF YES, PLEASE LIST: ____ . ANY NEW PROBLEMS WITH YOUR MEDICATIONS? NO . WHEN DID YOU LAST EAT? ____ . WHEN DID YOU LAST DRINK? ____ . WHAT DID YOU LAST DRINK? ____ . NAME OF PERSON DRIVING YOU HOME? ____ . DO YOU HAVE ANY OTHER QUESTIONS OR CONCERNS NO . REVIEWED BY: PROVIDER: ARIEL OLIVA . VITAL SIGNS WT 228 LBS, HT 70 IN, BMI 32.71 INDEX, BP 126/79 MM HG, HR 99 /MIN, RR 18 /MIN, TEMP 99.1 F, OXYGEN SAT % 96, SAFE IN ENV? (Y/N) Y, NA INITIALS AW 1115, REVIEWED BY: EM. EXAMINATION GENERAL EXAMINATION: LUNGS:LUNG SOUNDS ARE CLEAR. HEART:HEART RATE REGULAR. MUSCULOSKELETAL:*, MUSCLE STRENGTH TESTING 5/5 LEFT LEG.5/5 RIGHT LEG, PALPATION: NEGATIVE FOR PAIN OVER L/S SPINE. NEGATIVE FOR PAIN OVER L/S PARASPINALS.. DIAGNOSTIC:MRI L/S SPINE 04-27-16-REVIEWED. ASSESSMENTS INTERVERTEBRAL DISC DISORDERS WITH RADICULOPATHY, LUMBAR REGION - M51.16 (PRIMARY) TREATMENT INTERVERTEBRAL DISC DISORDERS WITH RADICULOPATHY, LUMBAR REGION CONTINUE FLEXERIL TABLET, 10 MG, 1 TABLET, ORALLY, BID CONTINUE OXYCODONE HCL TABLET, 5 MG, 1 TABLET, ORALLY, Q12H PRN MDD2 CONTINUE CELEBREX CAPSULE, 200 MG, 1 CAPSULE, ORALLY, BID CONTINUE GABAPENTIN CAPSULE, 300 MG, 1 CAPSULE, ORALLY, TWO TIMES A DAY STOP MELOXICAM TABLET, 7.5 MG, 1 TABLET, ORALLY, ONCE A DAY PRN NOTES: RIGHT L5/S1 TRANSFORAMINAL EPIDURAL. PROCEDURE CODES FA211 ESTABILISHED PATIENT [facility] CHARGE DISPOSITION & COMMUNICATION FOLLOW UP 2WK POST (REASON: RIGHT L5/S1 TRANSFORAMINAL EPIDURAL) ELECTRONICALLY SIGNED BY HAZEL DONOVAN ON 12/21/2016 AT 05:04 PM EDT DISCLAIMER : THIS IS A VISIT SUMMARY EXTRACTED FROM THE [employer] CHART. IT IS NOT A COPY OF THE [employer] PROGRESS NOTE. BENEDICTO
== END ==
LOC: M PAIN 11:00
PROVIDERS: ATTEND Nurse Practitioner Family
DX: M54.5 Low back pain (principal); G89.29 Other chronic pain; M51.16 Intervertebral disc disorders with radiculopathy, lumbar region; M79.604 Pain in right leg; Z79.891 Long term (current) use of opiate analgesic; Z79.899 Other long term (current) drug therapy

== ENCOUNTER → 2017-01-03 | Outpatient (CLI) | payer BC, OTHER ==
[~2017-01-03] MED LIST changes: +BUPIVACAINE HCL 0.25% 30 ML VIAL As Ordered ONE; +MIDAZOLAM INJ 2 MG/2 ML VIAL (J2250) As Ordered ONE; +dexameTHASONE 10 MG/1 ML VIAL PRES.FREE (J1100) As Ordered ONE; -diazePAM 5 MG TAB As Ordered ONE; +fentaNYL 100 MCG/2 ML INJECTION (J3010) As Ordered ONE; -methylPREDNISolone SUSP 40 MG/ML (DEPO-medrol) VIAL (J1030) As Ordered ONE; -oxyCODONE 5MG TAB As Ordered ONE
--- NOTE | 2017-01-03 16:31 | REP ---
FLUOROSCOPIC GUIDED SPINAL INJECTION: The films were reviewed with Dr. Herzog. The patient has a history of chronic low back pain. The portable C-ARM was provided in the OR for Dr. Thurman for fluoroscopic guidance. 285 intraoperative fluoroscopic spot films were obtained for needle placement verification for lumbar transforaminal injection. The films are on the PACS system and are available for review. 1 minute 26 seconds of fluoroscopic time was utilized for this procedure. Reviewed by LENNIE Wagner 01/03/2017 04:46 PEdited and Signed by Faizan Herzog MD 01/03/2017 05:09 P
--- NOTE | 2017-01-17 23:22 | ECWPNPC ---
PATIENT NAME: JEANINE BAPTISTE : 1980 GENDER: MALE VISIT DATE: 01/03/2017 DISCHARGE DATE: 01/03/17 1520 VISIT LOCKED DATE TIME: PHYSICIAN: TREVOR STONE RESOURCE: TREVOR STONE REASON FOR APPOINTMENT 1. R TRANSFORAMINAL, L5-S1 HISTORY OF PRESENT ILLNESS HISTORY OF PRESENT ILLNESS: PAIN THE PATIENT DESCRIBES THE PAIN... FALL RISK SCREENING: SCREENING :NO FALLS IN THE PAST YEAR CURRENT MEDICATIONS TAKING OMEPRAZOLE 20 MG CAPSULE DELAYED RELEASE 1 CAP ORALLY ONCE A DAY, NOTES: 01-03-17799 TAKING CYCLOBENZAPRINE HCL 10 MG TABLET 1 TABLET NEEDED ORALLY TWO TIMES A DAY, NOTES: 01-02-172099 TAKING OXYCODONE HCL 5 MG TABLET 1 TABLET ORALLY Q12H PRN MDD2, NOTES: 01-02-172099 TAKING CELEBREX 200 MG CAPSULE 1 CAPSULE ORALLY BID, NOTES: 01-03-17799 TAKING GABAPENTIN 300 MG CAPSULE 1 CAPSULE ORALLY TWO TIMES A DAY, NOTES: 01-03-17799 NOT-TAKING IBUPROFEN 600 MG TABLET 1 TABLET ORALLY ONCE DAILY, NOTES: RAN OUT 07/10 OR DISCONTINUED FLEXERIL 10 MG TABLET 1 TABLET ORALLY BID DISCONTINUED TRAMADOL HCL 50 MG TABLET SOLUBLE ORALLY , NOTES: TOOK LAST 1 THIS AM,NOT PRECRIBED FOR HIM DISCONTINUED METHYLPREDNISOLONE 4 MG TABLET THERAPY PACK DIRECTED ORALLY DIRECTED, NOTES: COMPLETED 07/11 MEDICATION LIST REVIEWED AND RECONCILED WITH THE PATIENT PAST MEDICAL HISTORY GERD ALLERGIES N.K.D.A. REVIEW OF SYSTEMS REVIEWED BY: PROVIDER: . CONSTITUTIONAL: ANY CHANGE IN YOUR MEDICAL CONDITION? NO . CHILLS NO . FEVER NO . INFECTION: DO YOU HAVE NEW INFECTIONS? NO . DO YOU HAVE HISTORY OF MRSA? NO . MUSCULOSKELETAL: ANY NEW PATTERNS OF PAIN OR NUMBNESS? NO . GASTROENTEROLOGY: ANY NEW CHANGE IN BOWEL CONTROL? NO . GENITOURINARY: ANY NEW CHANGE IN BLADDER CONTROL? NO . IS THERE A CHANCE YOU COULD BE ? NO . HEMATOLOGY/LYMPH: DO YOU TAKE ANY BLOOD THINNERS? (FOR EXAMPLE- COUMADIN, PLAVIX, AGGRENOX, PLATEL, PRADAXA, OR XARELTO) NO . WHEN WAS YOUR LAST DOSE? DATE: TIME: . NEUROLOGY: HAVE YOU FALLEN IN THE PAST 6 MONTHS? NO . ANY NEW EXTREMITY NUMBNESS OR WEAKNESS? NO . CARDIOLOGY: DO YOU HAVE A PACEMAKER OR DEFIBRILLATOR? NO . RESPIRATORY: HAVE YOU BEEN SICK IN THE PAST WEEK? NO . FEVER NO . FLU LIKE SYMPTOMS? NO . COUGH NO . INTEGUMENTARY: DO YOU HAVE ANY RASHES OR OPEN SORES? NO . ALLERGIC/IMMUNO: ARE YOU ALLERGIC TO SHELLFISH OR IV DYE? NO . ANY NEW ALLERGIES? NO . PSYCHIATRIC: DO YOU HAVE THOUGHTS OF HURTING YOURSELF OR SOMEONE ELSE? NO . ARE YOU ABUSED, NEGLECTED, OR IN AN UNSAFE ENVIRONMENT? NO . ENDOCRINOLOGY: ARE YOU DIABETIC? NO . OTHER: DO YOU NEED ANY PRESCRIPTIONS? NO . IF YES, PLEASE LIST: ____ . ANY NEW PROBLEMS WITH YOUR MEDICATIONS? NO . WHEN DID YOU LAST EAT? 01-02-17 6:30 PM . WHEN DID YOU LAST DRINK? 01-03-17 0930 . WHAT DID YOU LAST DRINK? LEMONADE . NAME OF PERSON DRIVING YOU HOME? TARA FERNÁNDEZ . DO YOU HAVE ANY OTHER QUESTIONS OR CONCERNS NO . VITAL SIGNS WT 226 LBS, HT 70 IN, BMI 32.42 INDEX, BP 133/80 MM HG, HR 87 /MIN, RR 18 /MIN, TEMP 98.2 F, OXYGEN SAT % 96:, NA INITIALS SC 11:47, REVIEWED BY: CM. ASSESSMENTS INTERVERTEBRAL DISC DISORDERS WITH RADICULOPATHY, LUMBAR REGION - M51.16 (PRIMARY) PROCEDURES PN LUMBAR TRANSFORAMINAL BLOCKS PRE PROCEDURE DIAGNOSIS LUMBAR DISC DISORDER WITH RADICULOPATHY POST PROCEDURE DIAGNOSIS LUMBAR DISC DISORDER WITH RADICULOPATHY PROCEDURE RIGHT L5 AND RIGHT S1 TRANSFORAMINAL EPIDURAL STEROID INJECTION UNDER FLUOROSCOPIC GUIDANCE SURGEON DR TREVOR STONE EDUCATIONAL TECHNOLOGY SPECIALIST NONE ANESTHESIA LOCAL WITH IV SEDATION PRE PROCEDURE NOTE PATIENT WITH HISTORY OF CHRONIC LOW BACK PAIN. I EVALUATE THE PATIENT AND REVIEWED THE CHART. I WENT OVER THE RISKS, ALTERNATIVES, AND BENEFITS ASSOCIATED WITH THIS PROCEDURE. PATIENT WOULD LIKE TO MOVE FORWARD WITH IV SEDATION DUE TO DISCOMFORT, PAIN AND ANXIETY ASSOCIATED WITH THE PROCEDURE. THE PATIENT WOULD LIKE TO PROCEED AND GIVE CONSENT TO PERFORMED THE PROCEDURE. THE PATIENT DENIES UNEXPLAINABLE WEIGHT LOSS, FEVER, CHILLS, OR CHANGES IN URINARY OR BOWEL CONTROL DESCRIPTION OF PROCEDURE THE PATIENT WAS BROUGHT TO THE PROCEDURE ROOM AND PLACED IN THE PRONE POSITION. THE LUMBOSACRAL AREA WAS CLEANED WITH BETADINE SOLUTION AND DRAPED ASEPTICALLY. THE PROCEDURE WAS DONE UNDER STERILE CONDITIONS. I CHECKED LATERALITY AND THE LEVEL WHERE THE PROCEDURE WAS GOING TO BE PERFORMED WITH THE PATIENT AND THE SUPPORTING STAFF AT THE MOMENT OF THE TIME OUT IN THE PROCEDURE ROOM. UNDER FLUOROSCOPIC GUIDANCE, TARGETS WERE SELECTED AT THE RIGHT TRANSFORAMINAL OPENING OF L5 AND THE RIGHT TRANSFORAMINAL OPENING OF S1. TARGET POINT WAS SELECTED AFTER LATERAL ROTATION AND TILT OF THE MAGNIFIER OF THE C-ARM. LIDOCAINE 0.5% WAS USED TO NUMB THE SKIN AND THE SUBCUTANEOUS TISSUE BELOW IT. AN EPIMED INTRODUCER 18-GAUGE WAS ADVANCED UNTIL WE WENT CLOSE TO THE SELECTED TRANSFORAMINAL OPENINGS. AFTER PROPER POSITION OF THE NEEDLES WAS ACHIEVED, A 22-GAUGE EPIMED NEEDLE WAS PLACED INSIDE OF THE INTRODUCER AND ADVANCED TO THE TRANSFORAMINAL OPENING OF THE SELECTED SITES. WHEN PROPER POSITION OF THE NEEDLE WAS ACHIEVED, ISOVUE M DYE 30%, 0.25 ML, WAS INJECTED SHOWING ADEQUATE SPREAD OF THE DYE. THIS WAS DONE UNDER DIGITAL SUBTRACTION AND ANGIOGRAPHY. THERE WAS NO VASCULAR UPDATE. THEN, A SOLUTION OF 2 ML OF BUPIVACAINE 0.25% AND DEXAMETHASONE 10 MG WAS INJECTED AT EACH SITE. PATIENT RECEIVED VERSED 2 MG AND FENTANYL 100 MCG DIVIDED DOSES V1. THERE WAS NO EVIDENCE OF BLOOD, PARESTHESIA OR CEREBROSPINAL FLUID DURING THE PROCEDURE. THE PATIENT WAS SENT TO THE RECOVERY ROOM. THE PATIENT WAS MOVING THE EXTREMITIES AND DOING WELL. THERE WAS NO COMPLICATION DURING THE PROCEDURE. FLUOROSCOPY TIME WAS 1 MINUTES 23 SECONDS. FACE TO FACE TIME WAS 24 MINUTES POST PROCEDURE NOTE THE PROCEDURE DONE WAS DISCUSSED WITH THE PATIENT. THE PATIENT WILL BE SEEN IN A FOLLOW UP IN THE NEXT FEW WEEKS. INSTRUCTIONS WERE GIVEN, QUESTIONS WERE ANSWERED, AND THE PATIENT EXPRESSED UNDERSTANDING AND AGREES WITH THE PLAN. I, GEE HARDY, DOCUMENTED THE ABOVE INFORMATION ACTING A SCRIBE FOR DR. STONE. I, DR. STONE, HAVE REVIEWED THE ABOVE DOCUMENT, SCRIBED BY GEE HARDY, AND I VERIFY THAT IT IS ACCURATE DIAGNOSTIC IMAGING [facility] FLUORO GUIDE SPINE INJECTION (PAIN)[id number] PROCEDURE CODES 6045F RADXPS IN END [id number] PXD 56569 MOD SED SAME PHYS/QHP 5/>YRS 71477 [place] SED [place] PHYS/[place] [address] INJ FORAMEN EPIDURAL L/S 82699 INJ FORAMEN EPIDURAL ADD-ON DISPOSITION & COMMUNICATION FOLLOW UP 3 WEEKS ELECTRONICALLY SIGNED BY TREVOR STONE MD ON 01/17/2017 AT 09:26 PM EDT DISCLAIMER : THIS IS A VISIT SUMMARY EXTRACTED FROM THE [employer] CHART. IT IS NOT A COPY OF THE [employer] PROGRESS NOTE. BENEDICTO
== END ==
LOC: M PAIN 11:40
PROVIDERS: ATTEND Anesthesiology
DX: G89.29 Other chronic pain (principal); M51.16 Intervertebral disc disorders with radiculopathy, lumbar region; K21.9 Gastro-esophageal reflux disease without esophagitis; Z79.891 Long term (current) use of opiate analgesic; Z79.899 Other long term (current) drug therapy
CPT/HCPCS: 64483; 64484; 99152; 99153; J1100; J2250; J3010; Q9967

== ENCOUNTER → 2017-01-25 | Outpatient (CLI) | payer BC, OTHER ==
--- NOTE | 2017-02-16 01:02 | ECWPNPC ---
PATIENT NAME: JEANINE BAPTISTE : 1980 GENDER: MALE VISIT DATE: 01/25/2017 DISCHARGE DATE: 01/25/17 1548 VISIT LOCKED DATE TIME: PHYSICIAN: ARIEL JONES RESOURCE: ARIEL JONES REASON FOR APPOINTMENT 1. POST PROCDURE HISTORY OF PRESENT ILLNESS HISTORY OF PRESENT ILLNESS: HERE FOR POST PROCEDURE F/U.HAD RIGHT L5/S1 TRANSFORAMINAL EPIDURAL ON 01-03-17.REPORTS SOME IMPROVEMENT IN PAIN >50% FOR TWO WEEKS.IS INTERESTED IN LUMBAR SURGERY AND HAS APPOINTMENT WITH [facility] IN FEBRUARY. CHRONIC LOW BACK PAIN/RIGHT LEG PAIN.HAS LARGE L/5/S/1 HNP WITH RIGHT LEG RADICULOPATHY.WAS OFFERED SURGERY BUT PATIENT WANTS TO HOLD OFF.HAVING SEVERE INCREASE IN LOW BACK PAIN AND RIGHT LEG RADICULAR SYMPTOMS PAST TWO WEEKS AFTER PUSH MOWING LAWN AND OTHER YARD WORK.DENIES BOWEL OR BLADDER INCONTINENCE.HAS RESPONDED WELL TO LESI IN PAST.DISCUSSED TRANSFORAMINAL STEROID INJECTIONS AND MEDICATION OPTIONS.RATING PAIN VAS 4/10. PAIN THE PATIENT DESCRIBES THE PAIN... THE PATIENT DESCRIBES THE PAIN... FALL RISK SCREENING: SCREENING :NO FALLS IN THE PAST YEAR CURRENT MEDICATIONS TAKING OMEPRAZOLE 20 MG CAPSULE DELAYED RELEASE 1 CAP ORALLY ONCE A DAY, NOTES: 01-03-17 0800 TAKING GABAPENTIN 300 MG CAPSULE 1 CAPSULE ORALLY TWO TIMES A DAY, NOTES: 01-03-17 0800 TAKING CELEBREX 200 MG CAPSULE 1 CAPSULE ORALLY BID, NOTES: 01-03-17 0800 TAKING OXYCODONE HCL 5 MG TABLET 1 TABLET ORALLY Q12H PRN MDD2, NOTES: 01-02-17 2100 TAKING CYCLOBENZAPRINE HCL 10 MG TABLET 1 TABLET NEEDED ORALLY TWO TIMES A DAY, NOTES: 01-02-172099 NOT-TAKING IBUPROFEN 600 MG TABLET 1 TABLET ORALLY ONCE DAILY, NOTES: RAN OUT 07/10 OR MEDICATION LIST REVIEWED AND RECONCILED WITH THE PATIENT PAST MEDICAL HISTORY GERD ALLERGIES N.K.D.A. REVIEW OF SYSTEMS REVIEWED BY: PROVIDER: ARIEL OLIVA . CONSTITUTIONAL: ANY CHANGE IN YOUR MEDICAL CONDITION? NO . CHILLS NO . FEVER NO . INFECTION: DO YOU HAVE NEW INFECTIONS? NO . DO YOU HAVE HISTORY OF MRSA? NO . MUSCULOSKELETAL: ANY NEW PATTERNS OF PAIN OR NUMBNESS? YES PT HAD RIGHT TRANSFORAMINAL EPIDURAL INJECTION L5-S1 ON 01/03. REPORTS THAT HIS PAIN PROGRESSED SLOWLY DOWN OVER THE NEXT WEEK TO A PAIN LEVEL OF ONE, WHICH LASTED FOR ABOUT A WEEK, THEN NOW IS PROGRESSIVELY INCREASING TO CURRENT LEVEL OF 3. PRE-PROCEDURE REPORTS A LEVEL OF 4. PT REPORTS INCREASED ACTIVITY LEVEL AT HOME. . GASTROENTEROLOGY: ANY NEW CHANGE IN BOWEL CONTROL? NO . GENITOURINARY: ANY NEW CHANGE IN BLADDER CONTROL? NO . IS THERE A CHANCE YOU COULD BE ? NO . HEMATOLOGY/LYMPH: DO YOU TAKE ANY BLOOD THINNERS? (FOR EXAMPLE- COUMADIN, PLAVIX, AGGRENOX, PLATEL, PRADAXA, OR XARELTO) NO . WHEN WAS YOUR LAST DOSE? DATE: TIME: . NEUROLOGY: HAVE YOU FALLEN IN THE PAST 6 MONTHS? NO . ANY NEW EXTREMITY NUMBNESS OR WEAKNESS? NO . CARDIOLOGY: DO YOU HAVE A PACEMAKER OR DEFIBRILLATOR? NO . RESPIRATORY: HAVE YOU BEEN SICK IN THE PAST WEEK? NO . FEVER NO . FLU LIKE SYMPTOMS? NO . COUGH NO . INTEGUMENTARY: DO YOU HAVE ANY RASHES OR OPEN SORES? NO . ALLERGIC/IMMUNO: ARE YOU ALLERGIC TO SHELLFISH OR IV DYE? NO . ANY NEW ALLERGIES? NO . PSYCHIATRIC: DO YOU HAVE THOUGHTS OF HURTING YOURSELF OR SOMEONE ELSE? NO . ARE YOU ABUSED, NEGLECTED, OR IN AN UNSAFE ENVIRONMENT? NO . ENDOCRINOLOGY: ARE YOU DIABETIC? NO . OTHER: DO YOU NEED ANY PRESCRIPTIONS? NO . IF YES, PLEASE LIST: ____ . ANY NEW PROBLEMS WITH YOUR MEDICATIONS? NO . WHEN DID YOU LAST EAT? ____ . WHEN DID YOU LAST DRINK? ____ . WHAT DID YOU LAST DRINK? ____ . NAME OF PERSON DRIVING YOU HOME? ____ . DO YOU HAVE ANY OTHER QUESTIONS OR CONCERNS YES PT REPORTS THAT SCIATIC PAIN IS RETURNING AFTER HAVING TO MOVE THIS PAST WEEKEND. . VITAL SIGNS WT 225 LBS, HT 70 IN, BMI 32.28 INDEX, BP 137/73 MM HG, HR 82 /MIN, RR 18 /MIN, TEMP 99.1 F, OXYGEN SAT % 98%, NA INITIALS SC 15:02. EXAMINATION GENERAL EXAMINATION: LUNGS:LUNG SOUNDS ARE CLEAR. HEART:HEART RATE REGULAR. MUSCULOSKELETAL:*, MUSCLE STRENGTH TESTING 5/5 LEFT LEG.5/5 RIGHT LEG, PALPATION: NEGATIVE FOR PAIN OVER L/S SPINE. NEGATIVE FOR PAIN OVER L/S PARASPINALS.. DIAGNOSTIC:MRI L/S SPINE 04-27-16-REVIEWED. ASSESSMENTS INTERVERTEBRAL DISC DISORDERS WITH RADICULOPATHY, LUMBAR REGION - M51.16 (PRIMARY) CHRONIC PRESCRIPTION OPIATE USE - Z79.891 TREATMENT INTERVERTEBRAL DISC DISORDERS WITH RADICULOPATHY, LUMBAR REGION CONTINUE GABAPENTIN CAPSULE, 300 MG, 1 CAPSULE, ORALLY, TWO TIMES A DAY, NOTES: 01-03-17 0800 CONTINUE CELEBREX CAPSULE, 200 MG, 1 CAPSULE, ORALLY, BID, NOTES: 01-03-17 0800 CONTINUE OXYCODONE HCL TABLET, 5 MG, 1 TABLET, ORALLY, Q12H PRN MDD2, NOTES: 01-02-172099 CONTINUE CYCLOBENZAPRINE HCL TABLET, 10 MG, 1 TABLET NEEDED, ORALLY, TWO TIMES A DAY, NOTES: 01-02-172099 PROCEDURE CODES FA211 ESTABILISHED PATIENT [facility] CHARGE DISPOSITION & COMMUNICATION FOLLOW UP 4 WEEKS ELECTRONICALLY SIGNED BY HAZEL DONOVAN ON 02/15/2017 AT 07:54 PM EDT DISCLAIMER : THIS IS A VISIT SUMMARY EXTRACTED FROM THE [employer] CHART. IT IS NOT A COPY OF THE [employer] PROGRESS NOTE. BENEDICTO
== END ==
LOC: M PAIN 15:00
PROVIDERS: ATTEND Nurse Practitioner Family
DX: M51.16 Intervertebral disc disorders with radiculopathy, lumbar region (principal); Z79.891 Long term (current) use of opiate analgesic; Z79.899 Other long term (current) drug therapy

== ENCOUNTER → 2017-02-27 | Outpatient (CLI) | payer BC, OTHER ==
--- NOTE | 2017-03-22 02:54 | ECWPNPC ---
PATIENT NAME: JEANINE BAPTISTE : 1980 GENDER: MALE VISIT DATE: 02/27/2017 DISCHARGE DATE: 02/27/17 1606 VISIT LOCKED DATE TIME: PHYSICIAN: ARIEL JONES RESOURCE: ARIEL JONES REASON FOR APPOINTMENT 1. LOW BACK HISTORY OF PRESENT ILLNESS HISTORY OF PRESENT ILLNESS: HERE FOR F/U.HAD RIGHT L5/S1 TRANSFORAMINAL EPIDURAL ON 01-03-17.REPORTS CONTINUED IMPROVEMENT IN PAIN.IS INTERESTED IN LUMBAR SURGERY AND HAS APPOINTMENT WITH [facility] THIS WEEK.SUFFERS FROM CHRONIC LOW BACK PAIN/RIGHT LEG PAIN.HAS LARGE L/5/S/1 HNP WITH RIGHT LEG RADICULOPATHY..RATING PAIN VAS 4/10.CURRENTLY USING OXYCODONE 5MG AND FLEXERIL 10MG AT HS.COMPLAINING OF CONSTIPATION.DISCUSSED NOT USING THIS EVERY NIGHT AND USE NEEDED FOR SEVER PAIN EPISODES.PAIN IS DESCRIBED INTERMITTENT,ACHING AND TENDERNESS. PAIN THE PATIENT DESCRIBES THE PAIN... THE PATIENT DESCRIBES THE PAIN... THE PATIENT DESCRIBES THE PAIN... FALL RISK SCREENING: SCREENING :NO FALLS IN THE PAST YEAR CURRENT MEDICATIONS TAKING OMEPRAZOLE 20 MG CAPSULE DELAYED RELEASE 1 CAP ORALLY ONCE A DAY TAKING GABAPENTIN 300 MG CAPSULE 1 CAPSULE ORALLY TWO TIMES A DAY TAKING CELEBREX 200 MG CAPSULE 1 CAPSULE ORALLY BID TAKING OXYCODONE HCL 5 MG TABLET 1 TABLET ORALLY Q12H PRN MDD2 TAKING CYCLOBENZAPRINE HCL 10 MG TABLET 1 TABLET NEEDED ORALLY TWO TIMES A DAY NOT-TAKING IBUPROFEN 600 MG TABLET 1 TABLET ORALLY ONCE DAILY, NOTES: RAN OUT 07/10 OR MEDICATION LIST REVIEWED AND RECONCILED WITH THE PATIENT PAST MEDICAL HISTORY GERD ALLERGIES N.K.D.A. SURGICAL HISTORY DENIES PAST SURGICAL HISTORY REVIEW OF SYSTEMS REVIEWED BY: PROVIDER: ARIEL JONES HEALTH OCCUPATIONS INSTRUCTOR . CONSTITUTIONAL: ANY CHANGE IN YOUR MEDICAL CONDITION? NO . CHILLS NO . FEVER NO . INFECTION: DO YOU HAVE NEW INFECTIONS? NO . DO YOU HAVE HISTORY OF MRSA? NO . MUSCULOSKELETAL: ANY NEW PATTERNS OF PAIN OR NUMBNESS? NO . GASTROENTEROLOGY: ANY NEW CHANGE IN BOWEL CONTROL? YES, PT C/O CONSTIPATION . GENITOURINARY: ANY NEW CHANGE IN BLADDER CONTROL? NO . IS THERE A CHANCE YOU COULD BE ? NO . HEMATOLOGY/LYMPH: DO YOU TAKE ANY BLOOD THINNERS? (FOR EXAMPLE- COUMADIN, PLAVIX, AGGRENOX, PLATEL, PRADAXA, OR XARELTO) NO . WHEN WAS YOUR LAST DOSE? DATE: TIME: . NEUROLOGY: HAVE YOU FALLEN IN THE PAST 6 MONTHS? NO . ANY NEW EXTREMITY NUMBNESS OR WEAKNESS? NO . CARDIOLOGY: DO YOU HAVE A PACEMAKER OR DEFIBRILLATOR? NO . RESPIRATORY: HAVE YOU BEEN SICK IN THE PAST WEEK? NO . FEVER NO . FLU LIKE SYMPTOMS? NO . COUGH NO . INTEGUMENTARY: DO YOU HAVE ANY RASHES OR OPEN SORES? NO . ALLERGIC/IMMUNO: ARE YOU ALLERGIC TO SHELLFISH OR IV DYE? NO . ANY NEW ALLERGIES? NO . PSYCHIATRIC: DO YOU HAVE THOUGHTS OF HURTING YOURSELF OR SOMEONE ELSE? NO . ARE YOU ABUSED, NEGLECTED, OR IN AN UNSAFE ENVIRONMENT? NO . ENDOCRINOLOGY: ARE YOU DIABETIC? NO . OTHER: DO YOU NEED ANY PRESCRIPTIONS? YES, OXYCODONE . IF YES, PLEASE LIST: ____ . ANY NEW PROBLEMS WITH YOUR MEDICATIONS? NO . WHEN DID YOU LAST EAT? ____ . WHEN DID YOU LAST DRINK? ____ . WHAT DID YOU LAST DRINK? ____ . NAME OF PERSON DRIVING YOU HOME? ____ . DO YOU HAVE ANY OTHER QUESTIONS OR CONCERNS NO . VITAL SIGNS WT 233 LBS, HT 70 IN, BMI 33.43 INDEX, BP 139/93 MM HG, HR 76 /MIN, RR 16 /MIN, TEMP 99.5 F, OXYGEN SAT % 97, REVIEWED BY: JIMY. EXAMINATION GENERAL EXAMINATION: LUNGS:LUNG SOUNDS ARE CLEAR. HEART:HEART RATE REGULAR. MUSCULOSKELETAL:*, MUSCLE STRENGTH TESTING 5/5 LEFT LEG.5/5 RIGHT LEG, PALPATION: NEGATIVE FOR PAIN OVER L/S SPINE. NEGATIVE FOR PAIN OVER L/S PARASPINALS.. DIAGNOSTIC:MRI L/S SPINE 04-27-16-REVIEWED. ASSESSMENTS INTERVERTEBRAL DISC DISORDERS WITH RADICULOPATHY, LUMBAR REGION - M51.16 (PRIMARY) CHRONIC PRESCRIPTION OPIATE USE - Z79.891 TREATMENT INTERVERTEBRAL DISC DISORDERS WITH RADICULOPATHY, LUMBAR REGION CONTINUE GABAPENTIN CAPSULE, 300 MG, 1 CAPSULE, ORALLY, TWO TIMES A DAY CONTINUE CELEBREX CAPSULE, 200 MG, 1 CAPSULE, ORALLY, BID REFILL OXYCODONE HCL TABLET, 5 MG, 1 TABLET, ORALLY, Q12H PRN MDD2, 30 DAY(S), 30, REFILLS 0 CONTINUE CYCLOBENZAPRINE HCL TABLET, 10 MG, 1 TABLET NEEDED, ORALLY, TWO TIMES A DAY START COLACE CAPSULE, 100 MG, 1 CAPSULE NEEDED, ORALLY, BID, 30 DAY(S), 60 CAPSULE, REFILLS 2 NOTES: PATIENT WAS ADVISED TO START A WALKING PROGRAM TO STRENGTHEN LUMBAR PARASPINAL MUSCLES AND IMPROVE MOBILITY. THEY WERE ADVISED THAT THIS WILL IMPROVE WEIGHT LOSS AND ALSO DEPRESSION/FIBROMYALGIA SYMPTOMS. ADVISED TO WALK 10 MINUTES EVERY OTHER DAY ON A FLAT SURFACE. EMPHASIZED THE IMPORTANCE OF DOING THIS CONSISTANTLY AND NOT SPORATICALLY TO AVOID INJURY. STRONG ADVISED NOT TO DO MORE THAN 10 MINUTES EVERY OTHER DAY FOR THE FIRST 4 WEEKS., RISKS AND BENEFITS OF NARCOTIC/OPIOD MEDICATIONS WERE REVIEWED WITH PATIENT - THIS INCLUDES BUT IS NOT LIMITED TO RISK OF DEPENDANCE/DEVELOPMENT OF ADDICTION, MOOD DISTURBANCE AND DEPRESSION, OSTEOPOROSIS, HORMONAL AND LABIDAL CHANGES, RESPIRATORY DEPRESSION AND . PATIENT IS ADVISED NOT TO DRIVE WHILE ON THESE MEDICATIONS.URINE TOX TODAY. PROCEDURE CODES FA211 ESTABILISHED PATIENT [facility] CHARGE DISPOSITION & COMMUNICATION FOLLOW UP 2 MONTHS ELECTRONICALLY SIGNED BY HAZEL DONOVAN ON 03/21/2017 AT 07:11 PM EDT DISCLAIMER : THIS IS A VISIT SUMMARY EXTRACTED FROM THE [employer] CHART. IT IS NOT A COPY OF THE [employer] PROGRESS NOTE. BENEDICTO
== END ==
LOC: M PAIN 15:00
PROVIDERS: ATTEND Nurse Practitioner Family
DX: M51.16 Intervertebral disc disorders with radiculopathy, lumbar region (principal); M51.17 Intervertebral disc disorders with radiculopathy, lumbosacral region; K21.9 Gastro-esophageal reflux disease without esophagitis; Z79.891 Long term (current) use of opiate analgesic; Z79.899 Other long term (current) drug therapy

== ENCOUNTER → 2017-07-19 | Outpatient (CLI) | payer OTHER | LOC: M PAIN 15:15 | DX: G89.29 Other chronic pain (principal); M51.16 Intervertebral disc disorders with radiculopathy, lumbar region; K21.9 Gastro-esophageal reflux disease without esophagitis; Z98.1 Arthrodesis status; Z79.891 Long term (current) use of opiate analgesic; Z79.899 Other long term (current) drug therapy; Z87.891 Personal history of nicotine dependence | CPT/HCPCS: G0463 ==

== ENCOUNTER → 2017-08-23 | Outpatient (CLI) | payer OTHER | LOC: M PAIN 14:45 | DX: M51.16 Intervertebral disc disorders with radiculopathy, lumbar region (principal); G89.29 Other chronic pain; K21.9 Gastro-esophageal reflux disease without esophagitis; Z79.899 Other long term (current) drug therapy; Z87.891 Personal history of nicotine dependence | CPT/HCPCS: G0463 ==